=== PATIENT | female | born 1985 | race Caucasian/White ===

== ENCOUNTER 2017-01-27 17:49 | Observation (INO) | payer BC ==
[~2017-01-27] VITALS: Ht 160 cm; Wt 46.0 kg
[2017-01-27 17:55] VITALS: BP 123/69; PULSE 100; RESP 20; TEMP 98.5; O2SAT 100
[2017-01-27] MEDS ORDERED: OXYB5TAB10 PO (18:00)
[2017-01-27] MEDS ORDERED: PANTOPRAZOLE SODIUM 40 MG VIAL IV PUSH ONE (18:45)
[2017-01-27] MEDS ORDERED: SODIUM CHLOR 0.9% 1000 ML INJ 1,000 ML IV ONE (18:45)
[2017-01-27] MEDS ORDERED: ONDANSETRON HCL 4 MG/2 ML VIAL IV PUSH ONE (18:45)
--- NOTE | 2017-01-27 18:56 | PD ---
HPI Chief Complaint: GI Complaint Time Seen by Provider: 17:58 Travel History International Travel<30 days: No Contact w/Intl Traveler<30days: No Traveled to known affect area: No History of Present Illness HPI Is a well 31-year-old woman who presents to the emergency department complaining of nausea vomiting hematemesis and syncope. She reports that she was sick about 6 days ago with just cannot feeling generally unwell. She improved. Check she just got a couple days ago. She's been traveling. In the middle the night last night she woke up vomiting dark red blood in her emesis. She also notes that she had a nosebleed wasn't sure she had swallowed the blood is coming from her stomach. She's been having diffuse lower abdominal pain as well as some epigastric pains been ongoing since then. She thought she was feeling a little better so they went out today. In the car she began to feel worse and had an episode of unresponsiveness witnessed only by her children. She is a nurse. She is a history of 2 diabetes as well as interstitial cystitis. She is on Azo and oxybutynin routinely. She's not had trouble with GI bleeding in the past. History Past Medical History Narrative Medical Diabetes Interstitial cystitis LMP: doesnt have periods Past Surgical History Surgical History: No Previous Surgery Social History Alcohol Use: Yes Tobacco Use: Yes Allergies-Medications (Allergen,Severity, Reaction): Coded Allergies: Azithromycin (Verified Allergy, Severe, 01/27/17) Codeine (Verified Allergy, Severe, 01/27/17) Latex (Verified Allergy, Intermediate, 01/27/17) Reported Meds & Prescriptions Reported Meds & Active Scripts Active Reported Ditropan (Oxybutynin Chloride) 5 Mg Tab 5 Mg PO Q12HR Review of Systems Except as stated in HPI: all other systems reviewed are Neg Physical Exam Narrative GENERAL: Thin 31-year-old woman, no acute distress. SKIN: Slight pallor. HEAD: Atraumatic. Normocephalic. EYES: Pupils equal and round. No scleral icterus. No injection or drainage. ENT: No nasal bleeding or discharge. Mucous membranes pink and moist. NECK: Trachea midline. No JVD. CARDIOVASCULAR: Regular rate and rhythm. No murmur appreciated. RESPIRATORY: No accessory muscle use. Clear to auscultation. Breath sounds equal bilaterally. GASTROINTESTINAL: Abdomen is flat and soft. Mild epigastric tenderness. MUSCULOSKELETAL: No obvious deformities. No edema. NEUROLOGICAL: Awake and alert. No obvious cranial nerve deficits. Motor grossly within normal limits. Normal speech. Data Data Last Documented VS Vital Signs Date Time Temp Pulse Resp B/P Pulse Ox O2 Delivery O2 Flow Rate FiO2 01/27/17 17:55 98.5 100 20 123/69 100 Orders Complete Blood Count With Diff (01/27/17 18:34) Comprehensive Metabolic Panel (01/27/17 18:34) Lipase (01/27/17 18:34) Urinalysis - C+S If Indicated (01/27/17 18:34) Iv Access Insert/Monitor (01/27/17 18:34) Sodium Chlor 0.9% 1000 Ml Inj (Ns 1000 M (01/27/17 18:45) Pantoprazole Inj (Protonix Inj) (01/27/17 18:45) Ondansetron Inj (Zofran Inj) (01/27/17 18:45) MDM Medical Decision Making Medical Screen Exam Complete: Yes Emergency Medical Condition: Yes Interpretation(s) My review of EKG: Normal sinus rhythm at a rate of 89, normal axis, normal intervals, no acute ischemia. Differential Diagnosis GI bleed, syncope, anemia, electrolyte abnormality, arrhythmia, gastritis, other Narrative Course Medical decision making Is a 31-year-old woman presents to the emergency department following episode nausea vomiting, epigastric abdominal pain, hematemesis in the setting of possible epistaxis, and an unusual syncopal episode while in the car and seated. She looks a little bit pale. She has some mild epigastric abdominal pain. She complains of lower abdominal discomfort as well. We'll start with labs, urine, IV fluids, reassess. Patient be sent out the oncoming provider 7 PM to follow-up on the results of diagnostic testing. Jeff Najera MD Jan 27, 2017 18:56
--- NOTE | 2017-01-27 19:07 | PD ---
Physical Exam Narrative General: The patient is a well-developed well-nourished female, pale appearing on examination.. Head and Neck exam: Head is normocephalic atraumatic. Cardiovascular: Regular rate and rhythm without murmurs, gallops, or rubs. No pulse deficit to the extremities and simultaneous auscultation and palpation of the radial artery.. Lungs: Clear to auscultation bilaterally. No wheezes, rhonchi, or rales. Abdomen: Soft, without tenderness to palpation in all 4 quadrants of the abdomen. No guarding, rebound, or rigidity. Normal bowel sounds are audible. No tenderness on palpation of McBurney's point Extremities: No clubbing, cyanosis, or edema. Neurologic Exam: Grossly nonfocal. Skin Exam: No rash noted. Intact skin that is warm and dry. Data Data Last Documented VS Vital Signs Date Time Temp Pulse Resp B/P Pulse Ox O2 Delivery O2 Flow Rate FiO2 01/27/17 19:51 80 22 103/65 99 Room Air 01/27/17 17:55 98.5 Orders Complete Blood Count With Diff (01/27/17 18:34) Comprehensive Metabolic Panel (01/27/17 18:34) Lipase (01/27/17 18:34) Urinalysis - C+S If Indicated (01/27/17 18:34) Iv Access Insert/Monitor (01/27/17 18:34) Sodium Chlor 0.9% 1000 Ml Inj (Ns 1000 M (01/27/17 18:45) Pantoprazole Inj (Protonix Inj) (01/27/17 18:45) Ondansetron Inj (Zofran Inj) (01/27/17 18:45) Labs Laboratory Tests Test 01/27/17 01/27/17 18:39 19:20 White Blood Count 10.2 TH/MM3 Red Blood Count 2.77 MIL/MM3 Hemoglobin 9.0 GM/DL Hematocrit 25.8 % Mean Corpuscular Volume 92.9 FL Mean Corpuscular Hemoglobin 32.3 PG Mean Corpuscular Hemoglobin 34.8 % Concent Red Cell Distribution Width 11.9 % Platelet Count 155 TH/MM3 Mean Platelet Volume 9.1 FL Neutrophils (%) (Auto) 65.4 % Lymphocytes (%) (Auto) 25.6 % Monocytes (%) (Auto) 7.6 % Eosinophils (%) (Auto) 1.0 % Basophils (%) (Auto) 0.4 % Neutrophils # (Auto) 6.7 TH/MM3 Lymphocytes # (Auto) 2.6 TH/MM3 Monocytes # (Auto) 0.8 TH/MM3 Eosinophils # (Auto) 0.1 TH/MM3 Basophils # (Auto) 0.0 TH/MM3 CBC Comment DIFF FINAL Differential Comment Sodium Level 138 MEQ/L Potassium Level 3.6 MEQ/L Chloride Level 109 MEQ/L Carbon Dioxide Level 23.0 MEQ/L Anion Gap 6 MEQ/L Blood Urea Nitrogen 40 MG/DL Creatinine 0.76 MG/DL Estimat Glomerular Filtration 89 ML/MIN Rate Random Glucose 127 MG/DL Calcium Level 7.3 MG/DL Protein Corrected Calcium 8.5 MG/DL Total Bilirubin 0.1 MG/DL Aspartate Amino Transf 9 U/L (AST/SGOT) Alanine Aminotransferase 9 U/L (ALT/SGPT) Alkaline Phosphatase 30 U/L Total Protein 5.0 GM/DL Albumin 2.9 GM/DL Lipase 88 U/L Urine Color YELLOW Urine Turbidity CLEAR Urine pH 6.0 Urine Specific [place] 1.021 Urine Protein NEG mg/dL Urine Glucose (UA) 300 mg/dL Urine Ketones NEG mg/dL Urine Occult Blood NEG Urine Nitrite NEG Urine Bilirubin NEG Urine Urobilinogen LESS THAN 2.0 MG/DL Urine Leukocyte Esterase NEG Urine RBC 2 /hpf Urine WBC 2 /hpf Urine Squamous Epithelial 3 /hpf Cells Urine Mucus FEW /lpf Microscopic Urinalysis Comment CULT NOT INDICATED MDM Medical Record Reviewed: Yes Supervised Visit with KELLY: No Narrative Course During the course of the patients emergency department visit, the patients history, examination, and differential diagnosis were reviewed with the patient. The patient had IV access obtained and blood work sent for analysis. The patient's case was checked out to me by Dr. Najera at the conclusion of his shift. Please see his complete history and physical. An EKG was done on arrival. The patient's ECG reveals a sinus rhythm heart rate of 89, no acute ST segment elevation or depression, QRS duration is 98 ms, QTC 395 ms. The patient was initially provided normal saline IV fluid bolus, Protonix 40 mg IV, Zofran 4 mg IV. The patients laboratory studies were reviewed and remarkable for a white count of 10.2, hemoglobin 9, platelets 155 with a normal differential. CMP is remarkable for chloride of 109, BUN is elevated at 40 again suspicious for an upper GI bleed, glucose 127, calcium 7.3, protein corrected calcium is 8.5, total bilirubin 0.1, AST 9, ALT 9, alkaline phosphatase 30, lipase 88. Urinalysis shows 300 glucose otherwise unremarkable. On further questioning, the patient denies any prior history of anemia. 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 She reports that she is currently visiting from out of town. The patient reports that over the last week she has been experiencing some midepigastric abdominal discomfort. She reports that for an extended period of time she has for generalized body aches, neck pain been taking ibuprofen 600 mg 1-2 times per day. She denies having any prior history of peptic ulcer disease. The patient will be started on a Protonix drip. The patients results were discussed with the patient, including the plan of care. I explained that further testing and/ or monitoring is indicated based on the patients history, examination, and/ or laboratory findings. Therefore, I recommended admission for additional evaluation. The patient expressed understanding and was agreeable with this plan. The patient was admitted to the hospital in guarded condition and [facility] Diagnosis Primary Impression: Hematemesis Qualified Code: K92.0 - Hematemesis with nausea Additional Impression: Syncope Qualified Code: R55 - Syncope, unspecified syncope type Admitting Information Admitting Physician Requests: Admit Arely Rae MD Jan 27, 2017 19:07
[2017-01-27 19:08] LABS: AUTOMATED NEUTROPHIL # 6.7 TH/MM3 (1.8-7.7); BASOPHIL % 0.4 % (0.0-2.0); EOSINOPHIL # 0.1 TH/MM3 (0-0.4); HEMATOCRIT 25.8 % (35.0-46.0); HEMO FLAGS DIFF FINAL; LYMPH % 25.6 % (9.0-44.0); LYMPHOCYTE # 2.6 TH/MM3 (1.0-4.8); MEAN CELL VOLUME 92.9 FL (80.0-100.0); MEAN CORPUSCULAR HEMOGLOBIN 32.3 PG (27.0-34.0); MEAN CORPUSCULAR HGB CONC 34.8 % (32.0-36.0); MONO % 7.6 % (0.0-8.0); NEUT % 65.4 % (16.0-70.0); PLATELET COUNT 155 TH/MM3 (150-450); RED BLOOD COUNT 2.77 MIL/MM3 (4.00-5.30); RED CELL DISTRIBUTION WIDTH 11.9 % (11.6-17.2); WHITE BLOOD COUNT 10.2 TH/MM3 (4.0-11.0)
[2017-01-27 19:51] VITALS: BP 103/65; PULSE 80; RESP 22; O2SAT 99
[2017-01-27 19:55] LABS: CALCIUM-PROTEIN CORRECTED 8.5 MG/DL (8.5-10.1); POTASSIUM 3.6 MEQ/L (3.5-5.1); TOTAL BILIRUBIN ADULT 0.1 MG/DL (0.2-1.0)
[2017-01-27 20:09] LABS: BLOOD, URINE NEG (NEG); COMMENT (UR) CULT NOT INDICATED; CULTURE IF INDICATED CULT NOT INDICATED; GLUCOSE,URINE 300 mg/dL (NEG); KETONE, URINE NEG (NEG); MUCUS URINE FEW /lpf (OCC); NITRITE,URINE NEG (NEG); SQUAMOUS EPITHELIAL CELL URINE 3 /hpf (0-5); URINE COLOR YELLOW (YELLW/STRAW)
[2017-01-27] MEDS ORDERED: ACETAMINOPHEN 325 MG TAB PO PRN (20:30)
[2017-01-27] MEDS ORDERED: SODIUM CHLORIDE 0.9% FLUSH 10 ML FLUSH IV FLUSH PRN (20:30)
[2017-01-27] MEDS ORDERED: ONDANSETRON HCL 4 MG/2 ML VIAL IVP PRN (20:30)
[2017-01-27] MEDS ORDERED: MORPHINE SULFATE 4 MG/ML INJ IV PRN (20:30)
[2017-01-27] MEDS ORDERED: BISACODYL 10 MG SUPP RECTAL PRN (20:30)
[2017-01-27] MEDS ORDERED: MAGNESIUM HYDROXIDE SUSP 30 ML CUP PO PRN (20:30)
[2017-01-27] MEDS ORDERED: LACTULOSE SYRUP 20 GM/30 ML CUP PO PRN (20:30)
[2017-01-27] MEDS ORDERED: SENNOSIDES 8.6 MG TAB PO PRN (20:30)
--- NOTE | 2017-01-27 20:31 | HHI.HP ---
[facility] Primary Care Physician Admission Diagnosis Hematemesis, Syncope Diagnoses: (1) Syncope Diagnosis: Principal (2) Dehydration Diagnosis: Principal (3) Hematemesis Diagnosis: Principal (4) Anemia Diagnosis: Principal Travel History International Travel<30 Days: No Contact w/Intl Traveler <30 Da: No Traveled to Known Affected Are: No History of Present Illness This is a 31-year-old female with a PMH of Interstitial Cystitis who presented to the ER secondary to nausea, vomiting, hematemesis and syncopal episode. Patient states she is visiting from out of town with and 2 daughters, had been feeling well until last night when she developed epistaxis, today had multiple episodes of nausea w/ hematemesis. States they went to the grocery store today and she waited in the car with daughters, believes she passed out while in the car but isn't sure, daughters did not witness event. On arrival, BP 123/69, HR 100, O2 sat 100% on RA, Afebrile. Hemoglobin 9.0. BUN 40. UA negative. CT Head with no acute findings. No h/o GI Bleed. Denies h/o Anemia. Review of Systems Except as stated in HPI: all other systems reviewed are Neg ROS: 14 point review of systems otherwise negative. Past Family Social History Past Medical History PMH: Interstitial Cystitis Past Surgical History PAST SURGICAL HISTORY: None Allergies: Coded Allergies: Azithromycin (Verified Allergy, Severe, 01/27/17) Codeine (Verified Allergy, Severe, 01/27/17) Latex (Verified Allergy, Intermediate, 01/27/17) Family History PAST FAMILY HISTORY: Reviewed. No h/o DM or CAD Social History PAST SOCIAL HISTORY: Occasional alcohol. Positive for tobacco. Negative for drugs. Physical Exam Vital Signs Vital Signs Date Time Temp Pulse Resp B/P Pulse Ox O2 Delivery O2 Flow Rate FiO2 01/27/17 19:51 80 22 103/65 99 Room Air 01/27/17 17:55 98.5 100 20 123/69 100 Physical Exam PE: GENERAL: Young white female in no acute distress, mildly pale. Family at bedside HEENT: PERRLA, EOMI. No scleral icterus or conjunctival pallor. No lid lag or facial droop. Dry mucous membranes. CARDIOVASCULAR: Regular rate and rhythm. No obvious murmurs to auscultation. No chest tenderness to palpation. RESPIRATORY: No obvious rhonchi or wheezing. Clear to auscultation. Breath sounds equal bilaterally. GASTROINTESTINAL: Abdomen soft, non-tender, nondistended. BS normal. MUSCULOSKELETAL: Extremities without clubbing, cyanosis, or edema. No obvious deformities. NEUROLOGICAL: Awake, alert and oriented x4. No focal neurologic deficits. Moving both upper and lower extremities spontaneously. Laboratory Laboratory Tests Test 01/27/17 01/27/17 18:39 19:20 White Blood Count 10.2 Red Blood Count 2.77 Hemoglobin 9.0 Hematocrit 25.8 Mean Corpuscular Volume 92.9 Mean Corpuscular Hemoglobin 32.3 Mean Corpuscular Hemoglobin 34.8 Concent Red Cell Distribution Width 11.9 Platelet Count 155 Mean Platelet Volume 9.1 Neutrophils (%) (Auto) 65.4 Lymphocytes (%) (Auto) 25.6 Monocytes (%) (Auto) 7.6 Eosinophils (%) (Auto) 1.0 Basophils (%) (Auto) 0.4 Neutrophils # (Auto) 6.7 Lymphocytes # (Auto) 2.6 Monocytes # (Auto) 0.8 Eosinophils # (Auto) 0.1 Basophils # (Auto) 0.0 CBC Comment DIFF FINAL Differential Comment Sodium Level 138 Potassium Level 3.6 Chloride Level 109 Carbon Dioxide Level 23.0 Anion Gap 6 Blood Urea Nitrogen 40 Creatinine 0.76 Estimat Glomerular Filtration 89 Rate Random Glucose 127 Calcium Level 7.3 Protein Corrected Calcium 8.5 Total Bilirubin 0.1 Aspartate Amino Transf 9 (AST/SGOT) Alanine Aminotransferase 9 (ALT/SGPT) Alkaline Phosphatase 30 Total Protein 5.0 Albumin 2.9 Lipase 88 Urine Color YELLOW Urine Turbidity CLEAR Urine pH 6.0 Urine Specific [place] 1.021 Urine Protein NEG Urine Glucose (UA) 300 Urine Ketones NEG Urine Occult Blood NEG Urine Nitrite NEG Urine Bilirubin NEG Urine Urobilinogen LESS THAN 2.0 Urine Leukocyte Esterase NEG Urine RBC 2 Urine WBC 2 Urine Squamous Epithelial 3 Cells Urine Mucus FEW Microscopic Urinalysis Comment CULT NOT INDICATED Result Diagram: 01/27/17183801/27/171838 Assessment and Plan Problem List: (1) Syncope ICD Code: R55 Status: Acute (2) Dehydration ICD Code: E86.0 Status: Acute (3) Hematemesis ICD Code: K92.0 Status: Acute (4) Anemia ICD Code: D64.9 Status: Acute Assessment and Plan A/P: 1. Syncope: questionable syncopal event, likely vasovagal event, no recurrence. CT Head w/ no acute findings, images reviewed by me. Admit for Observation, check Echo, telemetry. 2. Dehydration: Dry mucous membranes on exam, BUN elevated, U/a negative, IVF for hydration, repeat labs in am. 3. Hematemesis: episode of epistaxis, followed by nausea and hematemesis, likely due to swallowing blood, however reports recent Ibuprofen use for generalized pain, ? PUD. Started on Protonix gtt in ER, will continue. Repeat Hgb/Hct, transfuse as needed. GI Consult if symptoms persistent. 4. Anemia: +pallor on exam. Hgb 9.0, denies h/o Anemia. Check repeat Hgb in am, transfuse as needed. 5. DVT Prophylaxis: SCD/Teds. 6. Social work for d/c planning as needed. 7. Case discussed w/ ER physician at length Problem Qualifiers (1) Syncope: Qualified Code: R55 - Syncope, unspecified syncope type (2) Hematemesis: Qualified Code: K92.0 - Hematemesis with nausea Alanna Saldaña MD Jan 27, 2017 20:30
--- NOTE | 2017-01-27 20:44 | RADRPT ---
EXAM DATE/TIME: 01/27/2017 20:33 [facility] COMPARISON: No previous studies available for comparison. INDICATIONS : Possible syncopal episode, lethargic with nausea and vomiting. RADIATION DOSE: 29.49 CTDIvol (mGy) MEDICAL HISTORY : Diabetes mellitus type 2. SURGICAL HISTORY : None. ENCOUNTER: Initial ACUITY: 1 day PAIN SCALE: 0/10 LOCATION: cranial TECHNIQUE: Multiple contiguous axial images were obtained of the head. Using automated exposure control and adj ustment of the mA and/or kV according to patient size, radiation dose was kept as low as reasonably a chievable to obtain optimal diagnostic quality images. DICOM format image data is available electro nically for review and comparison. FINDINGS: CEREBRUM: The ventricles are normal for age. No evidence of midline shift, mass lesion, hemorrhage or acute in farction. No extra-axial fluid collections are seen. POSTERIOR FOSSA: The cerebellum and brainstem are intact. The 4th ventricle is midline. The cerebellopontine angle i s unremarkable. EXTRACRANIAL: Mild partial opacification of the ethmoid sinuses. SKULL: The calvaria is intact. No evidence of skull fracture. CONCLUSION: 1. No acute intracranial findings. 2. Mild ethmoid sinus disease. Sherif Rob MD on January 27, 2017 at 20:40 Board Certified Radiologist. This report was verified electronically.
[2017-01-27] MEDS: DOCUSATE SODIUM 50 MG/SENNA 8.6 MG TAB PO SCH (20:53)
[2017-01-27] MEDS: SODIUM CHLORIDE 0.9% FLUSH 10 ML FLUSH IV FLUSH SCH (20:53)
[2017-01-27] MEDS: SODIUM CHLOR 0.9% 1000 ML INJ 1,000 ML IV SCH (20:53)
[2017-01-27] MEDS: PANTOPRAZOLE INJ 80 MG in SODIUM CHLORIDE 0.9% INJ 100 ML IV SCH (21:08)
[2017-01-27 22:11] VITALS: BP 110/59; PULSE 72; RESP 17; TEMP 99; O2SAT 100
[2017-01-28] VITALS (13 sets, daily range): BP systolic 92–112; BP diastolic 50–67; PULSE 64–90; RESP 16–20; TEMP 97–98.5; O2SAT 98–100
[2017-01-28] MEDS: DOCUSATE SODIUM 50 MG/SENNA 8.6 MG TAB PO SCH ×2 (07:55→21:17)
[2017-01-28] MEDS: SODIUM CHLOR 0.9% 1000 ML INJ 1,000 ML IV SCH ×2 (07:56→17:00)
[2017-01-28] MEDS: PANTOPRAZOLE INJ 80 MG in SODIUM CHLORIDE 0.9% INJ 100 ML IV SCH (08:02)
[2017-01-28] MEDS: SODIUM CHLORIDE 0.9% FLUSH 10 ML FLUSH IV FLUSH SCH ×2 (09:00→21:00)
--- NOTE | 2017-01-28 09:24 | HHI.PR ---
Subjective Remarks Follow up for epistaxis/hematemesis, with syncope. The patient states she is visiting from [place], have been at the [email or web address] all weekend in [place], not staying hydrated, and not accustomed to the [place] heat. She had epistaxis a few days ago, then yesterday some nausea/vomiting with streaks of blood. She states her nausea/vomiting have resolved. She admits to having decreased appetite and recent poor oral intake. She believes the syncopal episode yesterday was related to dehydration. This has never happened before. 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 She wants to be discharged today. Objective Vitals Vital Signs Date Time Temp Pulse Resp B/P Pulse Ox O2 Delivery O2 Flow Rate FiO2 01/28/17 06:57 64 01/28/17 04:42 97.4 71 17 92/54 99 01/28/17 04:03 68 01/28/17 00:38 69 01/28/17 00:13 97.0 72 17 98/56 98 01/27/17 22:11 99.0 72 17 110/59 100 01/27/17 19:51 80 22 103/65 99 Room Air 01/27/17 17:55 98.5 100 20 123/69 100 Result Diagram: 01/27/17183801/27/171838 Imaging Last Impressions Head CT 01/27/172023 Signed Impressions: Service Date/Time: Friday, January 27, 2017 20:33 - CONCLUSION: 1. No acute intracranial findings. 2. Mild ethmoid sinus disease. Sherif Rob MD Objective Remarks GENERAL: Well-nourished, well-developed young thin patient in [facility]. SKIN: Warm and dry. No rash. HEENT: Normocephalic. Atraumatic. Pupils equal and round. Mucous membranes pink and moist. CARDIOVASCULAR: Regular rate and rhythm. S1, S2 noted. No murmur appreciated. RESPIRATORY: No accessory muscle use. Clear to auscultation. Breath sounds equal bilaterally. GASTROINTESTINAL: Scaphoid abdomen, soft, non-tender, nondistended. Normoactive bowel sounds x4. MUSCULOSKELETAL: No obvious deformities. Extremities without clubbing, cyanosis , or edema. NEUROLOGICAL: Awake and alert. No obvious cranial nerve deficits. Motor grossly within normal limits. Normal speech. PSYCHIATRIC: Appropriate mood and affect; insight and judgment normal. Medications and IVs Current Medications Medications (Trade) Dose Ordered Sig/Mandy Route Start Time Stop Time Status Last Admin Pantoprazole Sodium 80 mg/ Sodium Chloride 100 ml @ 10 mls/hr CONTINUOUS IV 01/27/17 20:30 01/28/17 08:02 (NS 1000 ml Inj) 1,000 ml @ 100 mls/hr Q10H IV 01/27/17 21:00 01/28/17 07:56 (NS Flush) 2 ml UNSCH PRN IV FLUSH 01/27/17 20:30 (NS Flush) 2 ml BID IV FLUSH 01/27/17 21:00 (Zofran Inj) 4 mg Q6H PRN IVP 01/27/17 20:30 (Tylenol) 650 mg Q6H PRN PO 01/27/17 20:30 (Domitila-Colace) 1 tab BID PO 01/27/17 21:00 (Milk Of Magnesia Liq) 30 ml Q12H PRN PO 01/27/17 20:30 (Senokot) 17.2 mg Q12H PRN PO 01/27/17 20:30 (Dulcolax Supp) 10 mg DAILY PRN RECTAL 01/27/17 20:30 (Lactulose Liq) 30 ml DAILY PRN PO 01/27/17 20:30 A/P Problem List: (1) Syncope ICD Code: R55 Status: Acute (2) Dehydration ICD Code: E86.0 Status: Acute (3) Hematemesis ICD Code: K92.0 Status: Acute (4) Anemia ICD Code: D64.9 Status: Acute Assessment and Plan 31-year-old female with a PMH of Interstitial Cystitis who presented to the ER secondary to epistaxis, nausea, vomiting, hematemesis and syncopal episode. Syncope: questionable syncopal event, likely vasovagal event, no recurrence. CT Head w/ no acute findings, images reviewed by me. Monitor on telemetry, no acute events. Check Echo. Check orthostatics. Give IVF for hydration. No further syncopal events. Dehydration: Dry mucous membranes on exam, BUN elevated, U/a negative. Give IVF for hydration, repeat labs today pending. Hematemesis: episode of epistaxis, followed by nausea and hematemesis, likely due to swallowing blood, however reports recent Ibuprofen use for generalized pain, ? PUD. Started on Protonix gtt in ER, will continue for now. Repeat Hgb/ Hct, transfuse as needed. Symptoms resolved. Anemia: +pallor on exam. Hgb 9.0, denies h/o Anemia. Repeat Hgb today, transfuse if Hgb < 8.0. Check iron studies/ferritin/folate/B12 Addendum 1200hrs: patient's Hgb 6.4, Hct 18.7. Will transfuse 2upRBCs. Repeat CBC in am. Check hemoccult. DVT Prophylaxis: SCD/Teds. Discharge Planning Await echo and blood transfusion. Possible discharge tomorrow. Problem Qualifiers (1) Syncope: Qualified Code: R55 - Syncope, unspecified syncope type (2) Hematemesis: Qualified Code: K92.0 - Hematemesis with nausea Elisa Salazar PA-C Jan 28, 2017 09:24
[2017-01-28 12:03] LABS: AUTOMATED NEUTROPHIL # 2.1 TH/MM3 (1.8-7.7); BASOPHIL % 0.6 % (0.0-2.0); EOSINOPHIL # 0.1 TH/MM3 (0-0.4); EOSINOPHIL % 1.3 % (0.0-4.0); LYMPH % 40.8 % (9.0-44.0); LYMPHOCYTE # 1.7 TH/MM3 (1.0-4.8); MEAN CELL VOLUME 93.8 FL (80.0-100.0); MEAN CORPUSCULAR HEMOGLOBIN 31.9 PG (27.0-34.0); NEUT % 50.3 % (16.0-70.0); PLATELET COUNT 105 TH/MM3 (150-450); RED CELL DISTRIBUTION WIDTH 12.1 % (11.6-17.2); WHITE BLOOD COUNT 4.2 TH/MM3 (4.0-11.0)
[2017-01-28 12:13] LABS: HEMATOCRIT 18.7 % (35.0-46.0); HEMO FLAGS AUTO DIFF
[2017-01-28 12:30] LABS: BICARBONATE 23.1 MEQ/L (21.0-32.0); CALCIUM-PROTEIN CORRECTED 8.4 MG/DL (8.5-10.1); POTASSIUM 3.8 MEQ/L (3.5-5.1); TOTAL BILIRUBIN ADULT 0.1 MG/DL (0.2-1.0)
[2017-01-28] MEDS ORDERED: SODIUM CHLOR 0.9% 250 ML INJ 250 ML IV ONE (12:30)
[2017-01-28 14:46] LABS: SCAN/DIFF AUTO DIFF CONFIRMED
--- NOTE | 2017-01-28 16:25 | EKG ---
Date Performed: 01/27/2017 Time Performed: 18:03:49 PTAGE: 31 years EKG: Sinus rhythm NORMAL ECG INTERPRETATION BASED ON A DEFAULT AGE OF 40 YEARS NO PREVIOUS TRACING DOCTOR: Renae Pearce Interpretating Date/Time 01/28/2017 16:23:40
[2017-01-28 18:11] LABS: TRANSFERRIN IRON PROFILE 115 MG/DL (200-360)
[2017-01-28 18:26] LABS: FERRITIN 17 NG/ML (8-252)
--- NOTE | 2017-01-28 19:32 | ECHRPT ---
Indication: CARDIOMYOPATHY CONCLUSIONS Normal left ventricular size. Wall thickness is normal. The left ventricular systolic function is hyperdynamic with an estimated ejection fraction in the ra nge of 65- 70%. No regional wall motion abnormalities are present. There is trace tricuspid valve regurgitation. BP: 123 / 69 HR: 100 Rhythm: Sinus MEASUREMENTS (Male / Female) Normal Values Technical Quality:Fair 2D ECHO LV Diastolic Diameter PLAX 4.4 cm 4.2 - 5.9 / 3.9 - 5.3 cm LV Systolic Diameter PLAX 3.0 cm IVS Diastolic Thickness 0.6 cm 0.6 - 1.0 / 0.6 - 0.9 cm LVPW Diastolic Thickness 0.6 cm 0.6 - 1.0 / 0.6 - 0.9 cm LV Relative Wall Thickness 0.3 LVOT Diameter 1.8 cm Aortic Root Diameter 2.2 cm LA Systolic Diameter LX 2.8 cm 3.0 - 4.0 / 2.7 - 3.8 cm M-MODE AV Cusp Separation MM 1.9 cm DOPPLER AV Peak Velocity 127.0 cm/s AV Peak Gradient 6.5 mmHg AV Mean Gradient 4.0 mmHg AV Velocity Time Integral 24.3 cm LVOT Peak Velocity 72.9 cm/s LVOT Peak Gradient 2.1 mmHg LVOT Velocity Time Integral 12.9 cm LVOT Cardiac Index 2313.3 cm/minm AV Area Cont Eq vti 1.4 cm AV Area Cont Eq pk 1.5 cm Mitral E Point Velocity 108.0 cm/s Mitral A Point Velocity 51.3 cm/s Mitral E to A Ratio 2.1 LV E' Lateral Velocity 13.2 cm/s Mitral E to LV E' Lateral Ratio 8.2 LV E' Septal Velocity 15.1 cm/s Mitral E to LV E' Septal Ratio 7.2 TR Peak Velocity 214.0 cm/s TR Peak Gradient 18.3 mmHg PV Peak Velocity 69.2 cm/s PV Peak Gradient 1.9 mmHg FINDINGS LEFT VENTRICLE Normal left ventricular size. Wall thickness is normal. The left ventricular systolic function is hyperdynamic with an estimated ejection fraction in the ra nge of 65- 70%. No regional wall motion abnormalities are present. Left ventricular diastolic function parameters are normal. RIGHT VENTRICLE Normal right ventricular size and systolic function. LEFT ATRIUM The left atrial size is normal. RIGHT ATRIUM The right atrial size is normal. ATRIAL SEPTUM The interatrial septum not well visualized. AORTA The aortic root and proximal ascending aorta are normal in size on limited imaging. MITRAL VALVE Structurally normal mitral valve. No mitral valve regurgitation. AORTIC VALVE Trileaflet aortic valve. No aortic valve stenosis or regurgitation. TRICUSPID VALVE Structurally normal tricuspid valve. There is trace tricuspid valve regurgitation. Normal estimated pulmonary pressures. PULMONARY VALVE The pulmonary valve is not well visualized. No pulmonary valve regurgitation. VESSELS The inferior vena cava (IVC) is normal in size. There is greater than 50% respiratory change in dimension of the inferior vena cava (normal). PERICARDIUM No pericardial effusion. Lamont Rivera MD, FACC (Electronically Signed) Final Date:28 January 2017 19:31
[2017-01-29] VITALS (9 sets, daily range): BP systolic 104–112; BP diastolic 56–66; PULSE 58–76; RESP 14–20; TEMP 97.9–98.4; O2SAT 98–100
[2017-01-29] MEDS: SODIUM CHLOR 0.9% 1000 ML INJ 1,000 ML IV SCH (03:00)
[2017-01-29] MEDS: PANTOPRAZOLE INJ 80 MG in SODIUM CHLORIDE 0.9% INJ 100 ML IV SCH (05:14)
[2017-01-29] MEDS ORDERED: CYANOCOBALAMIN 1000 MCG/ML VIAL IM ONE (07:00)
[2017-01-29] MEDS ORDERED: VITA10002 PO (07:42)
--- NOTE | 2017-01-29 07:42 | HHI.DCPOC ---
Discharge Care Plan Diagnosis: (1) Anemia (2) Syncope (3) Dehydration Goals to Promote Your Health * To prevent worsening of your condition and complications * To maintain your health at the optimal level Directions to Meet Your Goals Take your medications as prescribed Follow your dietary instruction Follow activity as directed Keep your appointments as scheduled Take your immunizations and boosters as scheduled If your symptoms worsen call your PCP, if no PCP go to Urgent Care Center or Emergency Room Smoking is Dangerous to Your Health. Avoid second hand smoke Call the 24-hour hour crisis hotline for domestic abuse at Elisa Salazar PA-C Jan 29, 2017 07:42
[2017-01-29 07:43] LABS: AUTOMATED NEUTROPHIL # 2.1 TH/MM3 (1.8-7.7); BASOPHIL % 0.4 % (0.0-2.0); EOSINOPHIL # 0.1 TH/MM3 (0-0.4); EOSINOPHIL % 1.6 % (0.0-4.0); HEMATOCRIT 27.7 % (35.0-46.0); LYMPH % 48.1 % (9.0-44.0); LYMPHOCYTE # 2.3 TH/MM3 (1.0-4.8); MEAN CELL VOLUME 88.5 FL (80.0-100.0); MEAN CORPUSCULAR HEMOGLOBIN 29.6 PG (27.0-34.0); MEAN CORPUSCULAR HGB CONC 33.5 % (32.0-36.0); MONO % 6.6 % (0.0-8.0); NEUT % 43.3 % (16.0-70.0); PLATELET COUNT 98 TH/MM3 (150-450); RED BLOOD COUNT 3.13 MIL/MM3 (4.00-5.30); RED CELL DISTRIBUTION WIDTH 16.5 % (11.6-17.2); WHITE BLOOD COUNT 4.9 TH/MM3 (4.0-11.0)
[2017-01-29 07:47] LABS: HEMO FLAGS AUTO DIFF
[2017-01-29 08:04] LABS: BICARBONATE 25.5 MEQ/L (21.0-32.0); POTASSIUM 3.6 MEQ/L (3.5-5.1)
[2017-01-29] MEDS ORDERED: MULTTAB67 PO (08:27)
[2017-01-29] MEDS ORDERED: FERR325T8 PO (08:27)
--- NOTE | 2017-01-29 08:38 | HHI.PR ---
Subjective Remarks Follow up for anemia, syncope. The patient reports feeling much better this morning s/p blood transfusion. Denies any lightheadedness/dizziness. Denies any nausea/vomiting/abdominal pain. She is tolerating oral intake. Denies any hematemesis/hematochezia/melena. She wants to go home. She plans to follow up with her PCP within a week. Objective Vitals Vital Signs Date Time Temp Pulse Resp B/P Pulse Ox O2 Delivery O2 Flow Rate FiO2 01/29/17 08:08 58 01/29/17 07:25 97.9 68 20 112/59 98 111/58 109/62 01/29/17 04:01 98.1 65 18 108/56 99 01/29/17 04:00 72 01/29/17 03:15 98.2 70 16 112/60 100 01/29/17 03:15 98.2 70 16 112/60 100 01/29/17 02:15 98.0 71 14 104/58 100 01/29/17 01:50 98.0 69 16 110/57 99 01/29/17 01:27 98.0 69 16 110/57 99 01/28/17 23:30 78 01/28/17 22:50 98.4 76 16 112/66 100 01/28/17 22:50 98.4 76 16 112/66 100 01/28/17 22:15 98.5 70 18 109/58 100 01/28/17 20:28 90 01/28/17 20:11 98.2 74 20 109/67 100 01/28/17 16:34 98.4 73 16 105/53 100 01/28/17 11:43 97.9 74 18 93/50 99 01/28/17 09:12 98.2 69 16 106/51 100 111/55 110/55 I/O 01/28/17 01/28/17 01/28/17 01/29/17 01/29/17 01/29/17 07:00 15:00 23:00 07:00 15:00 23:00 Intake Total 880 ml Balance 880 ml Intake IV Total 880 ml # Voids 2 3 Result Diagram: 01/29/17 0558 01/29/17 0558 Imaging Last Impressions Head CT 01/27/172023 Signed Impressions: Service Date/Time: Friday, January 27, 2017 20:33 - CONCLUSION: 1. No acute intracranial findings. 2. Mild ethmoid sinus disease. Sherif Rob MD Objective Remarks GENERAL: Well-nourished, well-developed young thin female patient in [facility]. SKIN: Warm and dry. No rash. HEENT: Normocephalic. Atraumatic. Pupils equal and round. Mucous membranes pink and moist. CARDIOVASCULAR: Regular rate and rhythm. S1, S2 noted. No murmur appreciated. RESPIRATORY: No accessory muscle use. Clear to auscultation. Breath sounds equal bilaterally. GASTROINTESTINAL: Scaphoid abdomen, soft, non-tender, nondistended. Normoactive bowel sounds x4. MUSCULOSKELETAL: No obvious deformities. Extremities without clubbing, cyanosis , or edema. NEUROLOGICAL: Awake and alert. No obvious cranial nerve deficits. Motor grossly within normal limits. Normal speech. PSYCHIATRIC: Appropriate mood and affect; insight and judgment normal. Medications and IVs Current Medications Medications (Trade) Dose Ordered Sig/Mandy Route Start Time Stop Time Status Last Admin Pantoprazole Sodium 80 mg/ Sodium Chloride 100 ml @ 10 mls/hr CONTINUOUS IV 01/27/17 20:30 01/29/17 05:14 (NS 1000 ml Inj) 1,000 ml @ 100 mls/hr Q10H IV 01/27/17 21:00 01/28/17 17:00 (NS Flush) 2 ml UNSCH PRN IV FLUSH 01/27/17 20:30 (NS Flush) 2 ml BID IV FLUSH 01/27/17 21:00 (Zofran Inj) 4 mg Q6H PRN IVP 01/27/17 20:30 01/28/17 22:31 (Tylenol) 650 mg Q6H PRN PO 01/27/17 20:30 01/28/17 11:57 (Domitila-Colace) 1 tab BID PO 01/27/17 21:00 01/28/17 21:17 (Milk Of Magnesia Liq) 30 ml Q12H PRN PO 01/27/17 20:30 (Senokot) 17.2 mg Q12H PRN PO 01/27/17 20:30 (Dulcolax Supp) 10 mg DAILY PRN RECTAL 01/27/17 20:30 (Lactulose Liq) 30 ml DAILY PRN PO 01/27/17 20:30 A/P Problem List: (1) Syncope ICD Code: R55 Status: Acute (2) Dehydration ICD Code: E86.0 Status: Acute (3) Hematemesis ICD Code: K92.0 Status: Acute (4) Anemia ICD Code: D64.9 Status: Acute Assessment and Plan 31-year-old female with a PMH of Interstitial Cystitis who presented to the ER secondary to epistaxis, nausea, vomiting, hematemesis and syncopal episode. Syncope: questionable syncopal event, likely vasovagal event, no recurrence. CT Head w/ no acute findings, images reviewed by me. Monitor on telemetry, no acute events. Echo with normal systolic function EF 65-70%. Orthostatics negative. Give IVF for hydration. No further syncopal events. Symptoms resolved. Dehydration: Dry mucous membranes on exam, BUN elevated at 40, U/a negative. Give IVF for hydration, repeat labs show much improvement, BUN 11, Cr 0.58. Resolved. Hematemesis: episode of epistaxis, followed by nausea and hematemesis, likely due to swallowing blood, however reports recent Ibuprofen use for generalized pain, ? PUD. Started on Protonix gtt in ER. Monitor Hgb/Hct, no further bleeding however Hgb dropped to 6.4, s/p 2u pRBC transfusion. Symptoms resolved. Anemia: +pallor on exam. Hgb 9.0, denies h/o Anemia. Repeat labs showed worsening with Hgb 6.4, Hct 18.7. S/p 2u pRBC transfusion. Repeat Hgb 9.3. Iron studies wnl however Vitamin B12 low. Strongly encouraged patient to f/up with PCP jose upon returning to [place], repeat CBC in 1 week, and to pursue GI work up with EGD/colonoscopy, patient is a nurse, verbalizes understanding and importance, she does not want any further work up during this hospitalization. Moderate Protein Calorie Malnutrition: patient cachectic on exam, BMI 18, Albumin 2.6, total protein 4.3 Counseled patient on increasing nutritional intake and adding Ensure or Boost shakes to meals. Vitamin B12 Deficiency: Given cyanocobalamin 1000mcg IM x1 and started on po vit b12 replacement. DVT Prophylaxis: SCD/Teds. Discharge Planning Discharge patient to home Condition on discharge: Improved Regular Diet as tolerated Ad Viv activity Rx written: vitamin B12, multi-vitamin, ferrous sulfate Follow-up with primary care physician within 1 week Check CBC in 1 week Problem Qualifiers (1) Syncope: Qualified Code: R55 - Syncope, unspecified syncope type (2) Hematemesis: Qualified Code: K92.0 - Hematemesis with nausea Elisa Salazar PA-C Jan 29, 2017 08:38
[2017-01-29 09:20] LABS: OVALOCYTES 1+ (NORMAL); PLATELET ESTIMATE SMEAR LOW (NORMAL); PLATELET MORPHOLOGY NORMAL (NORMAL); SCAN/DIFF AUTO DIFF CONFIRMED
== END 2017-01-29 09:47 | disposition home or self-care (01) ==
LOC: NEPE 17:49 → NEDA 20:25 → INTOOBSV 20:25 → NEPFCDU 22:00
PROVIDERS: ADMIT Hospitalist; ATTEND Hospitalist
DX: R55 Syncope and collapse (principal); E86.0 Dehydration; K92.0 Hematemesis; D64.9 Anemia, unspecified; E44.0 Moderate protein-calorie malnutrition; E53.8 Deficiency of other specified B group vitamins; E11.9 Type 2 diabetes mellitus without complications; K27.9 Peptic ulcer, site unspecified, unspecified as acute or chronic, without hemorrhage or perforation; R64 Cachexia; N30.10 Interstitial cystitis (chronic) without hematuria; Z72.0 Tobacco use; Z68.1 Body mass index [BMI] 19.9 or less, adult
CPT/HCPCS: 36430; 70450; 80048; 80053; 81001; 82607; 82728; 82746; 83540; 83550; 83690; 85025; 86850; 86900; 86901; 86920; 93005; 93306; 96361; 96365; 96366; 96372; 96375; 96376; 99285; C9113; G0378; J2405; J3420; J7030; J7050; P9016